=== PATIENT | female | born 1980 | race Caucasian/White ===

== ENCOUNTER 2016-10-13 09:19 | Emergency (ER) | payer OTHER ==
[~2016-10-13] VITALS: Ht 182.9 cm; Wt 61.2 kg
[~2016-10-13 09:19] MED LIST: METH-37 PO; TRAM-48 PO
[2016-10-13 10:01] VITALS: BP 112/60
--- NOTE | 2016-10-13 10:09 | PHYS DOC ---
Past Medical History Past Medical History: Depression Past Surgical History: No Surgical History Alcohol Use: Occasionally Drug Use: None Adult General Chief Complaint Chief Complaint: UPPER EXTREMITY PAIN HPI HPI Patient is a 36 year old female presents to left shoulder/upper back pain and discomfort for the last 4 days. Patient states she has taken medication over the counter for the pain without relief. Patient states she thought the pain was getting better until today. She denies injury or trauma to the left shoulder or back. Patient states she has increase pain with moving the arm and shoulder. Patient points to the upper back as being where the pain is located. Review of Systems Review of Systems Constitutional: Denies fever or chills [] Eyes: Denies change in visual acuity, redness, or eye pain [] HENT: Denies nasal congestion or sore throat [] Respiratory: Denies cough or shortness of breath [] Cardiovascular: No additional information not addressed in HPI [] GI: Denies abdominal pain, nausea, vomiting, bloody stools or diarrhea [] : Denies dysuria or hematuria [] Musculoskeletal: Left shoulder/upper back pain and discomfort. Integument: Denies rash or skin lesions [] Neurologic: Denies headache, focal weakness or sensory changes [] Endocrine: Denies polyuria or polydipsia [] Allergies Allergies Allergies Coded Allergies Type Severity Reaction Last Updated Verified sulfamethoxazole Allergy Intermediate 06/09/14 Yes trimethoprim Allergy Intermediate 06/09/14 Yes Physical Exam Physical Exam Constitutional: Well developed, well nourished, no acute distress, non-toxic appearance. [] HENT: Normocephalic, atraumatic, bilateral external ears normal, oropharynx moist, no oral exudates, nose normal. [] Eyes: PERRLA, EOMI, conjunctiva normal, no discharge. [] Neck: Normal range of motion, no tenderness, supple, no stridor. [] Cardiovascular:Heart rate regular rhythm, no murmur [] Lungs & Thorax: Bilateral breath sounds clear to auscultation [] Skin: Warm, dry, no erythema, no rash. [] Back: No tenderness Extremities: left upper back tenderness, no cyanosis, no clubbing, ROM intact, no edema. Patient with decrease ROM, unable to lift hand and arm over shoulder.Patient with slightly weaker air marshal to the left hand, equal sensation noted bilaterally. Neurologic: Alert and oriented X 3, normal motor function, normal sensory function, no focal deficits noted. [] Psychologic: Affect normal, judgement normal, mood normal. [] Current Patient Data Vital Signs Vital Signs Date Time Temp Pulse Resp B/P (MAP) Pulse Ox O2 Delivery O2 Flow Rate FiO2 10/13/16 10:01 98.1 97 18 98 Room Air 98.1 EKG EKG [] Radiology/Procedures Radiology/Procedures [][facility] [address] [place] [address] IMAGING REPORT Signed PATIENT: RAMAN MORALES ACCOUNT: [id number] : 1980 LOCATION: ER AGE: 36 SEX: F EXAM STATUS: REG ER ORD. PHYSICIAN: FRANCI DENTON APRN REASON: pain and discomfort with decrease ROM times 4 days PROCEDURE: SHOULDER 2+V LEFT Indication pain. History of previous dislocations. Internally and externally rotated views of the left shoulder were obtained as well as a Y view. No bony abnormality is seen. DICTATED and SIGNED BY: NORMAN BENÍTEZ MD DATE: 10/13/16 1025 CC: FRANCI DENTON APRN; UNKNOWN PCP NAME ~ Course & Med Decision Making Course & Med Decision Making Pertinent Labs and Imaging studies reviewed. (See chart for details) X-rays negative for any shoulder abnormality. Patient will be encouraged to use Ibuprofen 800 mg every 8 hours with food, Stop taking this medication if you develop upset stomach. Patient will also be provided wtih flexeril for muscle spasm and pain, she was instructed this medication will cause drowsiness do not take if you need to be alert and oriented. Patient will be placed in a shoulder sling for the next 3-4 days with recommendation to take the arm out of the slings 4 times a day and performed avtive range of motion to the shoulder. Signs and symptoms to return to the emergency department has been provider.Patient agrees with discharge instructions, treatment regimen or followup recommendation. [] Dragon Disclaimer Dragon Disclaimer This electronic medical record was generated, in whole or in part, using a voice recognition dictation system. Departure Departure Impression: Primary Impression: Upper back pain on left side Disposition: HOME, SELF-CARE Condition: STABLE Referrals: JYOTI ZUÑIGA (PCP) ARNOLD HUMPHREY MD Patient Instructions: Arm Sling Use-Brief, Back Pain, Adult, [id number] Additional Instructions: Warm moist packs to the upper back Medication as prescribed. Ibuprofen 800 mg every 8 hours with food, stop taking if you develop upset stomach Flexeril will help with muscle pain. Followup with your primary care provider in 5-7 days Return to emergency department as needed for signs and symptoms that become worse, Scripts Cyclobenzaprine Hcl (CYCLOBENZAPRINE HCL) 10 Mg Tablet 10 MG PO TID, #30 TAB Prov: FRANCI DENTON APRN 10/13/16 FRANCI DENTON APRN Oct 13, 2016 10:09
--- NOTE | 2016-10-13 10:30 | RAD ---
Indication pain. History of previous dislocations. Internally and externally rotated views of the left shoulder were obtained as well as a Y view. No bony abnormality is seen.
[2016-10-13] MEDS ORDERED: CYCL10TA2 PO (10:38)
[2016-10-13] MEDS ORDERED: IBUPROFEN 800 MG TABLET. PO ONE (11:00)
[2016-10-13] MEDS ORDERED: CYCLOBENZAPRINE 10 MG TABLET. PO ONE (11:00)
== END 2016-10-13 11:04 | disposition home or self-care (01) ==
LOC: ER 09:19
DX: M54.6 Pain in thoracic spine (principal); M25.512 Pain in left shoulder; M62.838 Other muscle spasm; F32.9 Major depressive disorder, single episode, unspecified; Z88.2 Allergy status to sulfonamides; Z88.1 Allergy status to other antibiotic agents
CPT/HCPCS: 73030; 99284

== ENCOUNTER 2018-10-03 17:24 | Emergency (ER) | payer OTHER, SELFPAY ==
[~2018-10-03] VITALS: Ht 170.2 cm; Wt 61.2 kg
[~2018-10-03 17:24] MED LIST changes: +CYCL10TA2 PO
[2018-10-03] MEDS ORDERED: IV NORMAL SALINE 1000ML BAG 1,000 ML IV ONE (18:15)
[2018-10-03 18:26] LABS: BASO % 0 % (0-3); EOS % 0 % (0-3); HEMATOCRIT 44.8 % (36.0-47.0); HEMOGLOBIN 14.9 g/dL (12.0-15.5); LYMPH # 0.8 x10^3/uL (1.0-4.8); LYMPH % 12 % (24-48); MEAN CORPUSCULAR HEMOGLOBIN 31 pg (25-35); MEAN CORPUSCULAR HGB CONC 33 g/dL (31-37); MEAN CORPUSCULAR VOLUME 92 fL (79-100); MONO # 0.5 x10^3/uL (0.0-1.1); MONO % 6 % (0-9); NEUT # 5.7 x10^3uL (1.8-7.7); NEUT % 81 % (31-73); PLATELET COUNT 257 x10^3/uL (140-400); RED BLOOD COUNT 4.88 x10^6/uL (3.50-5.40); RED CELL DISTRIBUTION WIDTH 16.9 % (11.5-14.5); WHITE BLOOD COUNT 7.1 x10^3/uL (4.0-11.0)
[2018-10-03 18:35] LABS: PROTHROMBIN TIME PATIENT 13.6 SEC (11.7-14.0)
[2018-10-03 18:44] VITALS: BP 113/65
[2018-10-03 18:44] LABS: CALCIUM 9.5 mg/dL (8.5-10.1); CREATININE 1.1 mg/dL (0.6-1.0); GFR 55.6; POTASSIUM 4.5 mmol/L (3.5-5.1)
[2018-10-03] MEDS ORDERED: MECLIZINE HCL 12.5 MG TABLET. PO ONE (18:45)
[2018-10-03 18:49] LABS: ALBUMIN 3.6 g/dL (3.4-5.0); ALBUMIN/GLOBULIN RATIO 0.8 (1.0-1.7); MAGNESIUM 1.8 mg/dL (1.8-2.4); TOTAL BILIRUBIN 0.4 mg/dL (0.2-1.0); TOTAL PROTEIN 7.9 g/dL (6.4-8.2)
[2018-10-03 19:25] LABS: BILIRUBIN,URINE NEGATIVE (NEG); CLARITY,URINE CLEAR; COLOR,URINE YELLOW; NITRITE,URINE NEGATIVE (NEG); PROTEIN,URINE 30 mg/dL (NEG-TRACE); UROBILINOGEN,URINE 0.2 mg/dL (0.2 mg/dL)
[2018-10-03 19:26] LABS: ACETAMIN < 2.0 mcg/ml (10-30); SALIC < 2.8 mg/dL (2.8-20.0)
[2018-10-03 19:31] LABS: BARBITURATES NEG (NEG); BENZODIAZEPINES NEG (NEG); CANNABINOIDS NEG (NEG); COCAINE NEG (NEG); METHADONE NEG (NEG); OPIATES NEG (NEG); PHENCYCLIDINE NEG (NEG)
[2018-10-03 19:32] LABS: AMPHETAMINE/METHAMPHETAMINE POS (NEG)
[2018-10-03 19:39] LABS: BACTERIA,URINE FEW /HPF (0-FEW); HYALINE CASTS, URINE MODERATE /HPF; SQUAMOUS EPITHELIAL CELL,UR MOD /LPF; TRICHOMONAS,URINE PRESENT
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
[2018-10-03] MEDS ORDERED: metroNIDAZOLE 500 MG TABLET PO ONE (20:15)
[2018-10-03] MEDS ORDERED: AZITHROMYCIN 250 MG TABLET. PO ONE (20:15)
[2018-10-03] MEDS ORDERED: cefTRIAXone IM 250 MG VIAL IM ONE (20:15)
[2018-10-03] MEDS ORDERED: IBUPROFEN 200 MG TABLET. PO ONE (21:15)
--- NOTE | 2018-10-04 00:19 | RAD ---
AP portable chest radiograph 10/03/2018 Clinical History: Dizziness. An AP erect portable digital radiograph of the chest was obtained. No previous studies are available for comparison. The cardiac and mediastinal silhouettes are within normal limits in size and configuration. No acute pulmonary infiltrate is seen. No pleural effusion or pneumothorax is noted. The osseous structures are grossly intact. IMPRESSION: No radiographic evidence of active cardiopulmonary disease. Electronically signed by: Miko Shankar MD (10/04/2018 12:16 AM) [facility]
--- NOTE | 2018-10-04 10:34 | EKG ---
[facility] [address] [place] [address] Test Date: 2018-10-03 Test Time: 18:15:28 Pat Name: RAMAN MORALES Department: Room: Gender: F Sole Ruffer: : 1980 Requested By: MACARIO SAMSON Order Number: [id number] Reading MD: Measurements Intervals [place] Rate: 90 P: 90 SD: 120 QRS: 93 QRSD: 88 T: 65 QT: 338 QTc: 417 Interpretive Statements SINUS RHYTHM BIATRIAL ENLARGEMENT RIGHTWARD AXIS ABNORMAL ECG RI6.01 Unconfirmed report No previous ECG available for comparison
== END 2018-10-03 22:10 | disposition home or self-care (01) ==
LOC: ER 17:24
DX: F15.20 Other stimulant dependence, uncomplicated (principal); R55 Syncope and collapse; R42 Dizziness and giddiness; A59.01 Trichomonal vulvovaginitis; F32.9 Major depressive disorder, single episode, unspecified; F17.210 Nicotine dependence, cigarettes, uncomplicated; Z88.1 Allergy status to other antibiotic agents; Z88.2 Allergy status to sulfonamides
CPT/HCPCS: 36415; 71045; 80053; 80307; 80329; 81001; 81025; 82553; 83690; 83735; 83880; 84443; 84484; 85025; 85610; 93005; 96360; 96372; 99285; J0696; J7030; J8597; Q0144; G0480

== ENCOUNTER 2019-01-20 12:12 | Emergency (ER) | payer SELFPAY ==
[~2019-01-20] VITALS: Ht 182.9 cm; Wt 61.2 kg
[2019-01-20 12:28] VITALS: BP 119/72
[2019-01-20] MEDS ORDERED: LIDOCAINE 2% VISCOUS 15 ML SOLUTION. MM ONE (13:15)
[2019-01-20] MEDS ORDERED: ACYC400T PO (13:17)
--- NOTE | 2019-01-20 13:18 | PHYS DOC ---
Past Medical History Past Medical History: Depression Past Surgical History: No Surgical History Additional Information: 6-7 cigarettes daily Alcohol Use: Occasionally Drug Use: Marijuana, Methamphetamine Adult General Chief Complaint Chief Complaint: SKIN PROBLEM HPI HPI Patient is a 38 year old female who presents to the ER with complaints of sores of her vulva for the last 4-5 days. Pt states they started as bumps but have evolved into painful sores over the last 2 days. She denies any new sex partners. She denies any irregular vaginal discharge, pelvic pain, hematuria, nausea, vomiting, or low back pain. She denies any rash on her hands or feet. Pt states that the areas burn when she urinates. She currently rates her pain a 9/10 on the pain scale, there are no alleviating factors. Sge denies any history of genital herpes. Review of Systems Review of Systems Constitutional: Denies fever or chills [] Eyes: Denies change in visual acuity, redness, or eye pain [] HENT: Denies nasal congestion or sore throat [] Respiratory: Denies cough or shortness of breath [] Cardiovascular: No additional information not addressed in HPI [] GI: Denies abdominal pain, nausea, vomiting, bloody stools or diarrhea [] : Denies dysuria or hematuria [] Musculoskeletal: Denies back pain or joint pain [] Integument: Denies rash or skin lesions [] Neurologic: Denies headache, focal weakness or sensory changes [] Endocrine: Denies polyuria or polydipsia [] All other systems were reviewed and found to be within normal limits, except as documented in this note. Allergies Allergies Allergies Coded Allergies Type Severity Reaction Last Updated Verified sulfamethoxazole Allergy Intermediate 06/09/14 Yes trimethoprim Allergy Intermediate 06/09/14 Yes Physical Exam Physical Exam Constitutional: Well developed, well nourished, no acute distress, non-toxic appearance. [] HENT: Normocephalic, atraumatic, bilateral external ears normal, oropharynx moist, no oral exudates, nose normal. [] Eyes: PERRLA, EOMI, conjunctiva normal, no discharge. [] Neck: Normal range of motion, no tenderness, supple, no stridor. [] Cardiovascular:Heart rate regular rhythm Lungs & Thorax: Respirations even and unlabored, no retractions, no respiratory distress Abdomen: Bowel sounds normal, soft, no tenderness, no masses, no pulsatile masses. [] Skin: Warm, dry, no erythema, no rash to hands or feet, vulvar ulcerations concerning for herpes noted or possible chancres Back: No tenderness Extremities: No cyanosis, no clubbing, ROM intact, no edema. [] Neurologic: Alert and oriented X 3, no focal deficits noted. [] Psychologic: Affect normal, judgement normal, mood normal. [] Current Patient Data Vital Signs Vital Signs Date Time Temp Pulse Resp B/P (MAP) Pulse Ox O2 Delivery O2 Flow Rate FiO2 01/20/19 12:28 98.4 89 16 119/72 (88) 96 Room Air 98.4 EKG EKG [] Radiology/Procedures Radiology/Procedures [] Course & Med Decision Making Course & Med Decision Making Pertinent Labs and Imaging studies reviewed. (See chart for details) Pt was treated prophylactically for chancres with 250 mg of IM rocephin and 1 gm of zithromax. Prescription written for acyclovir and viscous lidocaine. Recommend follow up with local health department for STD testing if symptoms do not improve with medications. Return to the ER if sx worsen. Patient verbalized an understanding of home care, medications, follow-up, and return to ED instructions and was in agreement with the plan of care. [] Dragon Disclaimer Dragon Disclaimer This electronic medical record was generated, in whole or in part, using a voice recognition dictation system. Departure Departure Impression: Primary Impression: Herpes genitalis in women Additional Impression: Chancroid in female Disposition: 01 HOME, SELF-CARE Condition: STABLE Referrals: NO PCP (PCP) Patient Instructions: Genital Herpes, Sexually Transmitted Disease, [id number] Additional Instructions: Fill the prescriptions and use as directed. You were treated prophylactically for chancroid. If symptoms persist, recommend you go to the health department for further screening of sexually transmitted infections. Return to the ER if your symptoms worsen. Scripts Acyclovir (ACYCLOVIR) 400 Mg Tablet 1 TAB PO TID for 10 Days, #30 TAB 0 Refills Prov: JO LOUISE APRN 01/20/19 Problem Qualifiers JO LOUISE APRN Jan 20, 2019 13:18
[2019-01-20] MEDS ORDERED: cefTRIAXone IM 250 MG VIAL IM ONE (13:45)
[2019-01-20] MEDS ORDERED: AZITHROMYCIN 250 MG TABLET. PO ONE (13:45)
== END 2019-01-20 13:45 | disposition home or self-care (01) ==
LOC: ER 12:12
DX: B00.9 Herpesviral infection, unspecified (principal); A57 Chancroid; F32.9 Major depressive disorder, single episode, unspecified; F17.210 Nicotine dependence, cigarettes, uncomplicated; Z88.2 Allergy status to sulfonamides; Z88.1 Allergy status to other antibiotic agents
CPT/HCPCS: 96372; 99283; J0696; Q0144